=== PATIENT | female | born 1985 | race Caucasian/White ===

== ENCOUNTER 2025-01-20 14:40 | Outpatient (CLI) | payer OTHER, SELFPAY ==
--- NOTE | 2025-01-20 15:00 | CRLHL7_ITS ---
For Patients: As a result of the Cures Act, medical imaging exams and procedure reports are released immediately into your electronic medical record. You may view this report before your referring provider. If you have questions, please contact your health care provider. OB ULTRASOUND LESS THAN 14 WEEKS, 01/20/2025 CLINICAL HISTORY: Dating and viability. SURGERY: . TECHNIQUE: Real time friedman scale imaging of the fetus was performed transvaginally. COMPARISON: None. FINDINGS: CRL: 2.8 cm, 9 weeks 4 days. CAR: 08/21/2025. FHR: 173 bpm. GEST SAC: 4.1 cm, appears WNL. YOLK SAC: 4.3 mm, appears WNL. RIGHT OVARY: 3.3 x 1.9 x 1.7, WNL. LEFT OVARY: 3.6 x 2 x 2.5 cm, WNL. IMPRESSION: 1. Single living intrauterine with sonographic gestational age 9 weeks 4 days and sonographic due date 08/21/2025. 2. Incidental simple right paraovarian cyst measures 1.9 x 1.4 x 1.7 cm. Viral Washington M.D. Diagnostic Radiologist [email or web address] Transcribed: 8:41 am DW/Dictated by: Viral Washington MD @ 01/21/2025 6:30:00 AM (Electronically Signed)
== END 2025-01-20 14:41 | disposition home or self-care (01) ==
LOC: US 14:41
PROVIDERS: Visit Provider Physician Assistant
DX: Z34.91 Encounter for supervision of normal pregnancy, unspecified, first trimester (principal); O34.81 Maternal care for other abnormalities of pelvic organs, first trimester; N83.291 Other ovarian cyst, right side; Z3A.09 9 weeks gestation of pregnancy
CPT/HCPCS: 76817; 83021; 86703; 86706; 86803; 86850; 86900; 86901; 87086; 87340; 87491; 87591

== ENCOUNTER 2025-01-20 16:15 | Outpatient (CLI) | payer OTHER, SELFPAY ==
[2025-01-21 00:47] LABS: Chlamydia DNA Amplified* NOT DETECTED (No Detected); GC DNA Amplified* NOT DETECTED (No Detected)
== END 2025-01-20 16:16 | disposition home or self-care (01) ==
PROVIDERS: Visit Provider Physician Assistant
DX: Z34.81 Encounter for supervision of other normal pregnancy, first trimester (principal)
CPT/HCPCS: 83020; 83021; 85660; 86592; 86703; 86704; 86706; 86762; 86787; 86803; 86850; 86900; 86901; 87086; 87340; 87491; 87591

== ENCOUNTER 2025-05-28 13:06 | Outpatient (CLI) | payer OTHER, SELFPAY ==
--- NOTE | 2025-05-28 13:15 | CRLHL7_ITS ---
For Patients: As a result of the Cures Act, medical imaging exams and procedure reports are released immediately into your electronic medical record. You may view this report before your referring provider. If you have questions, please contact your health care provider. OBSTETRICAL ULTRASOUND ??? FOLLOW-UP, 05/28/2025 INDICATION: AMA and prior history of growth restriction. CLINICAL HISTORY: CAR by US: 08/21/2025 Gestational Age: 27 weeks 6 days COMPARISON: 04/23/2025, 04/02/2025, 01/20/2025. TECHNIQUE: Real-time friedman-scale transabdominal imaging of the fetus was performed. FINDINGS: Fetus: Single Cervix: Not visualized positioning: Vertex Amniotic Fluid: 6.5 cm SDP Placenta technique: Transabdominal Placenta position: Posterior, left wall heart rate: 137 bpm BIOMETRY: BPD: 6.6 cm, 26 weeks 4 days, 7.9% HC: 25.1 cm, 27 weeks 2 days, 8.6% AC: 23.8 cm, 28 weeks 0 days, 48.4% FL: 5.1 cm, 27 weeks 1 day, 16.2% FL/AC Ratio: 21.3% HC/AC ratio: 1.1 EFW: 1093 grams; 2 lbs. 7 oz. age by this ultrasound: 27 weeks 2 days CAR by this ultrasound: 08/25/2025 Percentile by CAR: 26.6% IMPRESSION: 1. Sonographic gestational age 27 weeks 2 days and sonographic due date 08/25/2025. Sonographic age is 4 days behind the clinical age. 2. Estimated weight is 27th percentile. Abdominal circumference is 48th percentile. VIRAL HENRY M.D. Diagnostic Radiologist [email or web address] Transcribed: 3:[address]/Dictated by: Viral Henry MD @ 05/28/2025 2:58:00 PM (Electronically Signed)
== END 2025-05-28 13:07 | disposition home or self-care (01) ==
LOC: US 13:06
PROVIDERS: Visit Provider Obstetrics & Gynecology
DX: O09.522 Supervision of elderly multigravida, second trimester (principal); Z87.59 Personal history of other complications of pregnancy, childbirth and the puerperium; Z3A.27 27 weeks gestation of pregnancy
CPT/HCPCS: 76816; 86592

== ENCOUNTER 2025-06-02 08:17 | Outpatient (CLI) | payer OTHER, SELFPAY | END 2025-06-02 08:18 | disposition home or self-care (01) | LOC: NFLDREF 06-05 16:23 | PROVIDERS: Visit Provider Obstetrics & Gynecology | DX: R73.09 Other abnormal glucose (principal) | CPT/HCPCS: 82951; 82952 ==

== ENCOUNTER 2025-06-25 09:10 | Outpatient (CLI) | payer OTHER, SELFPAY ==
--- NOTE | 2025-06-25 09:15 | CRLHL7_ITS ---
For Patients: As a result of the Cures Act, medical imaging exams and procedure reports are released immediately into your electronic medical record. You may view this report before your referring provider. If you have questions, please contact your health care provider. OB ULTRASOUND FOLLOW-UP/LIMITED, 06/25/2025 CLINICAL HISTORY: History of FGR, AMA. COMPARISON: 04/02/2025, 04/23/2025, 05/28/2025. TECHNIQUE: Real time friedman scale imaging of the fetus was performed. Transabdominal imaging performed. FINDINGS: CAR by US: 08/21/2025. GA: 31 weeks 6 days. Gestation: Single. Cervix: Not visualized. Positioning: Vertex. Amniotic Fluid: 6.4 cm SDP. Placenta: Technique: TA. Placenta Position: Posterior, left wall. Dopplers: Heart Rate: 135 bpm. BIOMETRY BPD: 7.5 cm, 30 weeks 0 days. 4% HC: 28.8 cm, 31 weeks 4 days. 11% AC: 28.4 cm, 32 weeks 3 days. 65% FL: 5.9 cm, 30 weeks 5 days. 11% FL/AC Ratio: 20.71% HC/AC Ratio: 1.01. EFW: 1801 grams, 4 lb 0 oz. Age by this US: 31 weeks 1 day. CAR by this US: 08/26/2025. Percentile by CAR: 31% IMPRESSION: 1. Sonographic gestational age 31 weeks 1 day and sonographic due date 08/26/2025. Sonographic age is 5 days behind the clinical age. 2. Estimated weight 31st percentile. Abdominal circumference 65th percentile. BPD 4th percentile. Viral Washington M.D. Diagnostic Radiologist [email or web address] Transcribed: 11:54 am DW/Dictated by: Viral Washington MD @ 06/25/2025 10:43:00 AM (Electronically Signed)
== END 2025-06-25 09:11 | disposition home or self-care (01) ==
LOC: US 09:10
PROVIDERS: Visit Provider Obstetrics & Gynecology
DX: O09.93 Supervision of high risk pregnancy, unspecified, third trimester (principal); O09.523 Supervision of elderly multigravida, third trimester; Z3A.31 31 weeks gestation of pregnancy
CPT/HCPCS: 76816

== ENCOUNTER 2025-07-24 10:11 | Outpatient (CLI) | payer OTHER, SELFPAY ==
--- NOTE | 2025-07-24 10:15 | CRLHL7_ITS ---
For Patients: As a result of the Century Cures Act, medical imaging exams and procedure reports are released immediately into your electronic medical record. You may view this report before your referring provider. If you have questions, please contact your health care provider. OB ULTRASOUND BIOPHYSICAL PROFILE CAR by US: 08/21/2025. GA: 36 w, 0 d. Single. Comparison: 06/25/2025, 05/28/2025,04/23/2025. INDICATION: AMA and history of prior with growth restriction. TECHNIQUE: Real time friedman scale imaging of the fetus was performed. CERVIX: Not visualized. POSITIONING: Vertex. AMNIOTIC FLUID: 5.1 cm. SDP (N: greater than 2 x 1 cm) BIOPHYSICAL PROFILE: Total score: 2. Gross body movements: 2. tone: 2. Respiratory activity: 2. Amniotic fluid: 2. (SDP N: greater than 2 x 1 cm) Total:05/30. PLACENTA: Technique: Transabdominal. PLACENTA POSITION: Posterior left wall. DOPPLER: heart rate: 161 bpm. BIOMETRY: BPD: 8.3 cm. 33 w, 2 d, 3.5 percent. HC: 31.3 cm. 35 w, 0 d, 6.4 percent. AC: 33.3 cm. 37 w, 2 d, 88.6 percent. FL: 6.7 cm. 34 w, 3 d, 10.5 percent. FL/AC ratio: 20.0 percent. HC/AC ratio: 0.9. EFW: 2784 g. Weight: 6 lbs, 2 oz. age by this US: 35 w, 0 d. CAR by this US: 08/28/2025. Percentile by CAR: 46.7 percent. IMPRESSION: 1. Normal biophysical profile 05/30. 2. Sonographic gestational age 35 weeks 0 days and sonographic due date 08/28/2025. Sonographic age is 1 week behind the clinical age. 3. Estimated weight 47th percentile. Abdominal circumference 89th percentile. 4. Right renal pelvis measures 4.1 mm, considered within normal limits at this gestational age. Viral Washington M.D. Diagnostic Radiologist [email or web address] YOLANDA/deanna JR/Dictated by: Viral Washington MD @ 07/24/2025 11:12:00 AM (Electronically Signed)
== END 2025-07-24 10:12 | disposition home or self-care (01) ==
LOC: US 10:11
PROVIDERS: Visit Provider Obstetrics & Gynecology
DX: O09.93 Supervision of high risk pregnancy, unspecified, third trimester (principal); O09.523 Supervision of elderly multigravida, third trimester; Z3A.36 36 weeks gestation of pregnancy
CPT/HCPCS: 76816; 76819; 87081; 87653

== ENCOUNTER 2025-08-14 05:42 | Inpatient (IN) | payer OTHER, SELFPAY ==
[2025-08-14] VITALS (52 sets, daily range): BP systolic 85–120; BP diastolic 52–77; PULSE 54–93; RESP 14–16; TEMP 36.4–37.1; O2SAT 98–100; BMI 37.4
[2025-08-14 06:32] LABS: Hematocrit* 36.8 % (33.0-51.0); Hemoglobin* 12.1 gm/dL (12.0-16.0); Immature Granulocytes Abs Auto 0.02 K/uL (0.00-0.30); Immature Granulocytes Pct Auto 0.2 %; Lymphocytes Absolute Auto 2.11 K/uL (0.90-2.90); Mean Corpuscular HGB Conc 33 gm/dL (32-36); Mean Corpuscular Hemoglobin 30 pg (26-34); Mean Corpuscular Volume 90 fL (80-100); RDW Coefficient of Variation % 13.4 % (11.5-15.5); Red Blood Count* 4.07 m/uL (4.00-5.20); White Blood Count* 9.71 K/uL (4.50-11.00)
[2025-08-14 06:33] LABS: Slide Review Reflex No
[2025-08-14] MEDS: LACTATED RINGERS 1000 ML 1,000 ML IV (06:38)
[2025-08-14 06:46] LABS: Glucose* 95 mg/dL (60-115)
--- NOTE | 2025-08-14 07:16 | W.PM.LDBA ---
Subjective History of Present Illness Narrative: Patient is being admitted to Labor and Delivery for repeat with bilateral salpingectomy. She is a 40 year old at 39 0/7 weeks gestation. Her full history and physical was dictated by Dr. Christopher on 07/30/25. Please see this for details. Specific Issues/Plans Partner: Fran Baby girl: Carson name H&P: 07/30 Dr. Christopher # AMA, 40 # Hx SGA infants ASA 81mg, taking Genetic screening: low risk girl Level 2 ultrasound and consult with MFM: see below Serial growth US at 28 weeks Weekly testing starting at 36 weeks NST's will require belt straps, not the belly band. Patient will get sick with the tightness of the band. [x] testing sheet completed Recommend delivery 39-39 03/29 # GDM A1 1 hr gtt: 157 3 hr gtt: 96, 187, 153 and 107 Nutrition referral placed # obesity, BMI 37.1 Hemoglobin A1c: 5.6% testing covered under AMA Baby ASA recommended # history of x2. Plans repeat C/S. # Desires permanent sterilization # Candidiasis of bilateral breast fold topical nystatin powder ordered 02/19 Imaging: - Level 2 04/02: Normal visualized anatomy, suboptimal views of cavum septi pellucidi, lips, cardiac, hands/feet. EFW 291g at 36%ile, AC 44%ile. Posterior placenta, no previa. - 04/23: Remaining FA S completed and normal. EFW 525 g at 34%, AC 47% breech. Posterior placenta, no previa. MVP of 4.4 cm. Recommend using her 1st ultrasound for dating, with CAR of 08/21/25. - Growth 05/28: EFW 1093 g at 27%. BPD 8%, HC 8.6%, AC 48%, FL 16%. MVP 6.5 cm. - Growth 06/25: EFW 1801g at 31% - BPD 4%, HC 11%, AC 65%, FL 11%. MVP 6.4cm -Growth 07/24: Vertex presentation, single deepest pocket of amniotic fluid 5.1 cm. EFW: 2784 g, 46.7 percentile. Abdominal circumference: 88.6 percentile. Normal growth. BPP also completed and 05/30. Vaccinations: COVID: Declined - ask again Fall 2024 Flu: received Tdap: 06/11/2025 RSV: 07/30 Hep B non-immune, initial series as a child. Does not work in healthcare. Last pap: 11/17/2020 OB - Problem Based A/P Additional Plan (1) History of section complicating : Status: Acute Plan Repeat with bilateral salpingectomy Cefazolin for preoperative prophylaxis TRAXI for retraction of pannus Silver dressing to use for 1 week Lovenox for DVT prophylaxis Delivery/Labor/Induction Plan Plan: Section (with bilateral salpingectomy) OB Exam Physical Exam Vital signs: Temp Pulse Resp BP Pulse Ox 98.2 F 83 16 120/77 100 08/14/25 06:10 08/14/25 06:10 08/14/25 06:10 08/14/25 06:10 08/14/25 06:14 Narrative: Physical exam: General: No acute distress Psych: Alert and oriented x3, full affect HEENT: Normocephalic, atraumatic Heart: Regular rate and rhythm, no murmur rub or gallop Lungs: Clear to auscultation bilaterally Abdomen: Gravid, pannus noted tracing: Baseline 120, accelerations present, no decelerations, moderate variability Infrequent contractions
--- NOTE | 2025-08-14 08:55 | PM.OBPRCCS ---
Procedure Date of procedure: 08/14/25 Pre-op diagnosis: 39 weeks, 0 days gestation Two previous deliveries Undesired fertility Post-op diagnosis: same Procedure Done: Global (With bilateral salpingectomy) Will [facility] bill your pro fee for this procedure?: Yes Blood Loss Measurement Type: QBL (593) Bakri Used: No IV fluids (mL): 2,200 Urine Output (mL): 100 Surgeon: Lily Christopher MD International Operations Manager: Pinky De La Torre CRNA Anesthesia Type: Spinal Findings: 1. Female infant, cephalic OA presentation, Apgars of 8 and 9, weight 7 lb and 1 oz 2. Scarring noted involving the fascia and the bladder reflection. Otherwise normal appearance of uterus, tubes and ovaries. 1.5 cm simple pedunculated cyst of right fallopian tube was removed at time of bilateral salpingectomy. Procedure Name: Repeat low-transverse section with bilateral salpingectomy Procedure Description: PROCEDURE IN DETAIL: Patient was taken to the operating room with IV running. She received cefazolin in preoperative prophylaxis. Spinal anesthesia was administered. Shine catheter was inserted. She was prepped and draped in the usual sterile fashion. Anesthesia was tested and found to be adequate. A low-transverse skin incision was made with a scalpel and carried through to the underlying layer of fascia with the scalpel. The subcutaneous fat was dissected off the underlying fascia with Bovie. The fascia was nicked in the midline with a scalpel, and this incision was extended laterally with scissors. The rectus muscles were in the midline. Peritoneum was identified and entered bluntly. Bovie and scissors were used to widen this opening laterally. Ole O retractor was inserted and tightened down, providing excellent visualization of the lower uterine segment. This required 2 attempts due to some interference with scar tissue involving the bladder reflection. The bladder reflection was found to be advanced along the lower uterine segment. A bladder flap was created with a combination of sharp and blunt dissection. Low-transverse uterine incision was made with a scalpel. Incision was widened bluntly. The infant's head was grasped through the hysterotomy and delivered with the help of fundal pressure. The remainder of the body delivered without incident. Cord was clamped and cut after 30 seconds. Infant was handed off to attending nurses. The placenta was delivered with gentle traction on the cord. The uterus was exteriorized and cleaned of all clots and debris with the dry lap pad. The hysterotomy was reapproximated with 0 Vicryl in a running, locked fashion. A few [id number] sutures of 0 Vicryl were required to obtain hemostasis. The adnexa were examined and noted to be normal in appearance. Attention was 1st turned to the left fallopian tube, which was grasped with Donaldo clamps and elevated. The LigaSure exact device was used to amputate the left tube at the uterine cornua. Dissection was carried laterally to medially through the mesosalpinx, ultimately coagulating and transecting the distal blood supply and freeing the tube. This tube was sent to pathology. Hemostasis was confirmed. Thereafter, the procedure was repeated on the right tube, moving laterally to medially, also removing the pedunculated paratubal cyst at that time. The cul-de-sac was cleansed with dampened laparotomy sponge, removing any further clots and debris. The uterus was returned to the abdomen. The Ole O retractor was removed. The hysterotomy was reexamined and found to be hemostatic. The gutters were cleansed of clots and debris. The peritoneum was reapproximated with 2 0 Vicryl in a running fashion. The rectus muscles were examined and found to be hemostatic. The fascia was reapproximated with 0 Vicryl in a running fashion. Subcutaneous fat was irrigated and Bovie used on oozing vessels. The subcutaneous fat was reapproximated with 2 0 plain gut suture in an interrupted fashion. The skin was closed with a subcuticular stitch of 4-0 Monocryl. Steri-Strips and silver dressing were applied above this. Patient tolerated procedure well was taken to recovery area in stable condition. Complications: None Pathology: specimen obtained, sent to pathology (bilateral Fallopian tubes) Surgery Debrief Performed: Yes Surgery Debrief Comment: Postoperative debrief was verbalized with OR staff, including a verification of pathology specimens to be sent as described above. Disposition: floor [facility] Infant total score - 1 minute: 8 total score - 5 minute: 9
--- NOTE | 2025-08-14 09:27 | P.ANES_ITS ---
Anesthesia Charges Start Date/Time Anesthesia Start Date: 08/14/25 Anesthesia Start Time: 07:25 Stop Date/Time Anesthesia Stop Date: 08/14/25 Anesthesia Stop Time: 09:26 Coding CPT Codes CPT Codes: ANESTH CS DELIVERY - 35564 ([id number]) P3 - PATIENT W/SEVERE SYS DISEASE, QK - POST FRAMER 2-4 CNCRNT ANES PROC, QX - SUPERVISOR GEAR REPAIR SVC W/ MD MED DIRECTION
--- NOTE | 2025-08-14 09:27 | W.ANESCHARGE ---
Anesthesia Charges Start Date/Time Anesthesia Start Date: 08/14/25 Anesthesia Start Time: 07:25 Stop Date/Time Anesthesia Stop Date: 08/14/25 Anesthesia Stop Time: 09:26 Coding CPT Codes CPT Codes: ANESTH CS DELIVERY - 68202 ([id number]) P3 - PATIENT W/SEVERE SYS DISEASE, QK - ASSISTANT MANAGER QUALITY MANAGEMENT 2-4 CNCRNT ANES PROC, QX - PROPERTY AND SUPPLY OFFICER SVC W/ MD MED DIRECTION
--- NOTE | 2025-08-14 09:28 | W.PM.NB ---
Nerve Block Nerve Block Time Seen by Provider: 09:10 Date Seen: 08/14/25 Type of block requested by surgeon for post-operative analgesia: TAP Side: bilateral Time out performed: Yes Verification of patient name: Yes Verification of date of : Yes Site marking: site marked Name of person performing procedure: Naty Padilla Assistants, if any: CAITY Doe Continuous monitoring Was continuous monitoring of O2 sat, B/P, awake overnight monitor, recorded every 15 minutes?: Yes Procedure Checklist: sterile prep, needles and gloves Ultrasound guided. Images saved: Yes Medications given in 5ml increments after negative aspiration: Marcaine %: 0.25 mL: 30 and Exparel mL: 10 Patient tolerated procedure well: Yes Block Charges Block Charge (with Pro Fee): TAP Bilateral Use of Ultrasound Machine for Block: Yes- US Guidance/pain block
[2025-08-14] MEDS: ACETAMINOPHEN 500 MG TABLET 1000 MG PO ×2 (10:16→16:44)
--- NOTE | 2025-08-14 11:36 | P.ANES_ITS ---
Anesthesia Charges Start Date/Time Anesthesia Start Date: 08/14/25 Anesthesia Start Time: 07:25 Stop Date/Time Anesthesia Stop Date: 08/14/25 Anesthesia Stop Time: 09:26 Coding CPT Codes CPT Codes: ANESTH CS DELIVERY - 43739 ([id number]) QK - BOAT FINISHER 2-4 CNCRNT ANES PROC, QX - PAINT ROLLER COVERMAKER SVC W/ MD MED DIRECTION, P3 - PATIENT W/SEVERE SYS DISEASE
--- NOTE | 2025-08-14 11:36 | W.ANESCHARGE ---
Anesthesia Charges Start Date/Time Anesthesia Start Date: 08/14/25 Anesthesia Start Time: 07:25 Stop Date/Time Anesthesia Stop Date: 08/14/25 Anesthesia Stop Time: 09:26 Coding CPT Codes CPT Codes: ANESTH CS DELIVERY - 70616 ([id number]) QK - GUIDE DOMESTIC TOUR 2-4 CNCRNT ANES PROC, QX - BLUEPRINT DEVELOPER SVC W/ MD MED DIRECTION, P3 - PATIENT W/SEVERE SYS DISEASE
[2025-08-14] MEDS: DOCUSATE SODIUM 100 MG CAPSULE PO (11:57)
[2025-08-14] MEDS: ENOXAPARIN 40 MG/0.4 ML INJ SUBCUT (15:01)
[2025-08-15 00:02] VITALS: BP 115/74; PULSE 71; RESP 18; TEMP 36.7; O2SAT 98
[2025-08-15] MEDS: SIMETHICONE 80 MG TAB.CHEW PO ×4 (02:20→21:39)
--- NOTE | 2025-08-15 02:35 | PC.NURSE ---
The patient called and reported R sided rib cage pain and pain under the medial breast area. The patient noted that it was abrupt in onset when she turned over to tend to baby. PRN simethicone and scheduled Toradol were given, as well as an ice pack. The patient was educated to try to reposition and take deep breathes as well. Joanne MARIANO BSN
[2025-08-15] MEDS: MAG HYDROX/ALUMINUM HYD/SIMETH 30 ML ORAL.SUSP PO ×3 (03:01→15:32)
[2025-08-15 04:30] VITALS: BP 127/78; PULSE 78; RESP 18; TEMP 36.6; O2SAT 97
[2025-08-15 06:29] LABS: Hemoglobin* 9.6 gm/dL (12.0-16.0)
[2025-08-15 08:00] VITALS: BP 102/68; PULSE 65; RESP 18; TEMP 36.7; O2SAT 98
[2025-08-15] MEDS: DOCUSATE SODIUM 100 MG CAPSULE PO (08:09)
[2025-08-15] MEDS: ACETAMINOPHEN 500 MG TABLET 1000 MG PO ×2 (11:12→21:40)
[2025-08-15] MEDS: ONDANSETRON 2 MG/ML inj 4 MG IVP (12:28)
[2025-08-15] MEDS: ENOXAPARIN 40 MG/0.4 ML INJ SUBCUT (15:23)
[2025-08-15 16:15] VITALS: BP 115/73; PULSE 60; RESP 16; TEMP 36.7; O2SAT 100
--- NOTE | 2025-08-15 18:25 | PM.OBPNVD1 ---
OB - PN:Subj Subjective Date Seen: 08/15/25 Interval history: Day 1:? Delivery at 39 and 0/7 weeks.? ?? Complications:? one? Vale felt nauseated after narcotic pain meds this morning, which improved with ondanasetron IVP.? Her pain is well controlled with current medications.? She has no new complaints.? Urinary output is adequate and she is voiding without difficulty.? Has a good appetite, is tolerating a general diet, is passing flatus, and has not had a bowel movement.? Has moderate amount of rubra lochia.? She is ambulating well.? Patient comments OB post-: no complaints and tolerating diet infant status: bottle, and doing well feeding status: breast and bottle feeding OB - PN: Obj Exam Physical Exam: Vital signs: Temp Pulse Resp BP Pulse Ox O2 Del Method 98.1 F 60 16 115/73 100 Room Air 08/15/25 16:15 08/15/25 16:15 08/15/25 16:15 08/15/25 16:15 08/15/25 16:15 08/15/25 16:15 Narrative: GENERAL APPEARANCE:? normal affect, alert, no distress? MOOD:? appropriate? CHEST:? clear to auscultation and percussion? HEART:? regular rate and rhythm? BREASTS: soft, nontender, no erythema, nipples intact? ABDOMEN:? soft, non-tender the uterine fundus is firm and is appropriate for the stage of recovery. Incision covered by a dressing which is C/D/I.? PERINEUM:? not examined.? EXTREMITIES:? normal and no edema? OB - PN: Obj Data Labs Labs: Laboratory Results - last 24 hr 08/15/25 06:00 Hgb 9.6 L OB - PN: A/P Delivery Assessment and Plan (1) care and examination of lactating mother: Status: Acute Assessment and Plan: 40 year old on day 1.? 1. cares.? 2. Anticipate discharge tomorrow.? (2) anemia: Status: Acute Assessment and Plan: D/c home with iron supplementation. (3) History of section complicating : Status: Acute (4) Gestational diabetes: Status: Acute Assessment and Plan: Ordered 2h GTT for tomorrow AM. Plan day: 1 Plan: routine care
[2025-08-15 21:42] VITALS: BP 119/80; PULSE 66; RESP 16; TEMP 36.9; O2SAT 100
[2025-08-16] MEDS: ACETAMINOPHEN 500 MG TABLET 1000 MG PO ×2 (04:03→11:11)
[2025-08-16] MEDS: MAG HYDROX/ALUMINUM HYD/SIMETH 30 ML ORAL.SUSP PO (04:03)
[2025-08-16 04:08] VITALS: BP 123/81; PULSE 61; RESP 16; TEMP 36.9; O2SAT 100
[2025-08-16] MEDS: IBUPROFEN 600 MG TABLET PO ×2 (08:17→14:39)
[2025-08-16] MEDS: DOCUSATE SODIUM 100 MG CAPSULE PO (08:17)
[2025-08-16] MEDS: SIMETHICONE 80 MG TAB.CHEW PO (08:17)
[2025-08-16 09:00] VITALS: BP 120/88; PULSE 76; RESP 16; TEMP 36.6; O2SAT 99
[2025-08-16 10:27] LABS: Glucose 2 Hour 129 mg/dl (70-155)
--- NOTE | 2025-08-16 12:03 | PM.OBDSVD1 ---
DS: Providers Provider Date Seen: 08/16/25 Date of admission: 08/14/25 05:42 Primary care physician: Not a Local Provider Admitting Clinician: Lily Christopher MD Attending Physician on discharge: Michelle Morris MD Date of Discharge: 08/16/25 DS: Diagnosis Discharge Diagnosis (1) S/P section: Status: Acute Problem details: Repeat section with bilateral salpingectomy (2) Gestational diabetes: Status: Acute Problem details: Normal 2h GTT prior to discharge (3) anemia: Status: Acute Problem details: Hgb 9.6 at discharge Exam Const: Vital Signs, click to edit/add: Vital Signs - 24 hr 08/15/25 16:15 08/15/25 21:42 08/16/25 04:08 Temperature 98.1 F 98.4 F 98.4 F Pulse Rate [Pulse Oximeter] 60 66 61 Respiratory Rate 16 16 16 Blood Pressure [Le ft Arm] 115/73 119/80 123/81 Pulse Oximetry 100 100 100 Oxygen Delivery Me thod Room Air Room Air Room Air 08/16/25 09:00 Temperature 97.9 F Pulse Rate [Pulse Oximeter] 76 Respiratory Rate 16 Blood Pressure [Le ft Arm] 120/88 Pulse Oximetry 99 Oxygen Delivery Me thod Room Air Documenting provider has reviewed patient's vital signs: yes Common normals: no apparent distress and oriented x3 General appearance: cooperative and comfortable HENMT: Common normals: normocephalic Head and scalp: normocephalic Resp: Common normals: normal respiratory effort Cardio: Common normals: regular rate and regular rhythm Rate: regular rate Rhythm: regular rhythm GI: Common normals: soft to palpation and non-tender Inspection: normal to inspection and incision (Silver Mepilex dressing present) Palpation: soft Extremity: Common normals: normal to inspection and no pedal edema Neuro: Common normals: oriented x3 Psych: Common normals: affect normal OB - DS: Summary Hospital Course Hospital Course: The patient is a 40 year old G5 now P3023 that was admitted to the Center on 08/14/25 at 39 weeks gestation for repeat section with bilateral salpingectomies. She had an uncomplicated delivery. She delivered a viable female infant. She is breast and bottle feeding. the patient has done well. Peripartum Data delivery method: Repeat Section Procedures: Procedures Operation Date: 08/14/25 07:15 Actual Procedure Side Surgeon p Repeat Low Transverse Section, Tubal Ligation Lily Christopher MD Procedures: tubal ligation/salpingectomy complications: none Infant Gender: Female Discharge Plan: Home Status at Discharge Functional status at discharge: independent ambulation Overall status at discharge: patient is back to baseline Time Spent with Patient Time attestation: Total time spent providing and/or coordinating discharge services: Discharge Plan Discharge Disposition: Home, Self-Care Date of Admission: 08/14/25 05:42 Primary Care Provider: Provider,Not a Local Condition: Stable Anticipated Discharge Date/Time: 08/16/25 12:10 Discharge Medications: New docusate sodium 100 mg Capsule 100 mg PO DAILY Qty: 30 0RF ibuprofen 600 mg Tablet 600 mg PO Q6H PRN (Reason: Pain) Qty: 30 0RF Continued [id number] 3 fatty no.1 27-1-300 mg capsule PO folic acid 400 mcg tablet 0.4 mg PO QDAY loratadine [Claritin] 10 mg tablet 10 mg PO QDAY nystatin 100,000 unit/gram powder 1 applic topical BID Qty: 30 1RF Discontinued aspirin [Adult Low Dose Aspirin] 81 mg tablet,delayed release (DR/EC) 81 mg PO QDAY pyridoxine (vitamin B6) 50 mg tablet 50 mg PO QDAY Unisom (doxylamine) 25 mg tablet 25 mg PO QHS PRN (DME) lancets [facility] [place] See Rx Instructions .MEDSUPPLY Qty: 100 3RF Rx Instructions: Test blood sugar 4 times daily. (DME) Test Strips [facility] [place] See Rx Instructions .MEDSUPPLY Qty: 100 3RF Rx Instructions: Test blood sugar 4 times daily. (DME) Blood Glucose Meter [facility] [place] See Rx Instructions .MEDSUPPLY Qty: 1 0RF Rx Instructions: As directed Discharge Orders: Discharge Order (Routine); Ordered 08/16/25 Ordered By: Michelle Morris Patient Education: Bupivacaine Liposome (By injection), OB Care, OB Over the Counter Medication Information, OB /Breast Feeding Additional Instructions: Follow up in the [facility] clinic for removal of silver Mepilex dressing on 08/22/25. Activity Level: Activity as Tolerated Discharge Diet: Regular Follow Up Appointments: Provider,Not a Local [Primary Care Provider, Family Practice] Forms: [facility] Info Instructions
== END 2025-08-16 15:00 | disposition home or self-care (01) | DRG 785 ==
PROVIDERS: Advanced Practice Midwife; Admitting Provider Obstetrics & Gynecology; Visit Provider Obstetrics & Gynecology
PROC: 10D00Z1 Extraction of Products of Conception, Low, Open Approach (ICD-10-PCS; CPT 59514; principal; 2025-08-14 07:15)
DX: O34.211 Maternal care for low transverse scar from previous cesarean delivery (principal); O24.429 Gestational diabetes mellitus in childbirth, unspecified control; G89.18 Other acute postprocedural pain; O90.81 Anemia of the puerperium; D64.9 Anemia, unspecified; O99.214 Obesity complicating childbirth; E66.9 Obesity, unspecified; Z30.2 Encounter for sterilization; Z3A.39 39 weeks gestation of pregnancy; Z37.0 Single live birth
CPT/HCPCS: 01961; 36415; 64488; 76942; 82947; 82950; 82962; 85018; 85025; 86592; 86850; 86900; 86901; 88302; 88307; A4314; A9270; J0665; J0666; J0690; J1650; J1885; J2371; J2405; J2590; J7120

== ENCOUNTER 2025-09-25 10:38 | Outpatient (CLI) | payer OTHER, SELFPAY | END 2025-09-25 10:39 | disposition home or self-care (01) | LOC: NFLDREF 09-30 08:56 | PROVIDERS: Visit Provider Physician Assistant | DX: O24.419 Gestational diabetes mellitus in pregnancy, unspecified control (principal) | CPT/HCPCS: 82947 ==